=== PATIENT | female | born 1965 | race Caucasian/White ===

== ENCOUNTER → 2017-11-29 | Outpatient (CLI) | payer OTHER ==
[~2017-11-29] MED LIST: BIRTH CONTROL; CEPH500 PO; FEXO60; [UNRECOGNIZED DRUG - REMARK]; [UNRECOGNIZED DRUG - REMARK]
== END ==
LOC: LAB SHORT 11:17 → LAB SRC 11:17
DX: N12 Tubulo-interstitial nephritis, not specified as acute or chronic (principal); R10.9 Unspecified abdominal pain
CPT/HCPCS: 87077; 87086; 87186

== ENCOUNTER → 2017-12-06 | Outpatient (CLI) | payer OTHER | LOC: LAB SRC 09:30 → LAB SHORT 09:30 | DX: N10 Acute pyelonephritis (principal); R10.9 Unspecified abdominal pain | CPT/HCPCS: 82043 ==

== ENCOUNTER → 2022-08-06 | Outpatient (CLI) | payer OTHER | END | disposition home or self-care (01) | LOC: LAB SHORT 13:06 → LAB 13:06 | DX: N39.0 Urinary tract infection, site not specified (principal) | CPT/HCPCS: 87086 ==